=== PATIENT | female | born 1975 | race Caucasian/White ===

== ENCOUNTER → 2017-06-28 | Outpatient (REF) ==
[~2017-06-28] MED LIST: ACE3 PO; ADRENAL SUPPLEMENT; AMO500 PO; ASPI-1064 PO; BUP100 PO; CIPR-344 PO; CYC10 PO; FURO-45 PO; HTP; HYDR-3724 PO; IBU200 PO; IBU800 PO; IBUPROFEN; KET10 PO; LISD30PT PO; LOR5 PO; LOR5/325 PO; METF-1 PO; METH4TAB57 PO; OXYC-865 PO; PER PO; PRE20 PO; PRO20 PO; SCOPALAMINE PATCH; SUMA50TA34 PO; THYR60TA25 PO; [UNRECOGNIZED DRUG - OTHER]
--- NOTE | 2017-06-28 13:45 | RADIOLOGY IMAGING REPORT ---
FACILITY: [facility] - [place] PATIENT NAME: Stacy Barahona : 1975 MR: [id number] V: [id number] EXAM DATE: ORDERING PHYSICIAN: FERNANDO NGUYỄN TECHNOLOGIST: Location: [facility] - [place] Patient: Stacy Barahona : 1975 Visit/Account:[id number] Date of Sevice: 06/28/2017 Exam type: ANKLE 3 VIEW MIN RIGHT History: Fall 06/02/2017 Comparison: 06/01/2017. Findings: Reidentified is a subacute oblique displaced fracture of the distal right fibula with extension into the ankle joint. Ankle mortise aligns appropriately. Talar dome is intact. Tibia is intact. Soft tissue swelling is noted. IMPRESSION: 1. Subacute oblique displaced fracture of the distal right fibula with intra-articular extension ess entially unchanged. Report Dictated By: Felipe Hughes MD at 06/28/2017 1:39 PM Report E-Signed By: Felipe Hughes MD at 06/28/2017 1:41 PM WSN:[id number]
== END ==
LOC: RAD 12:31
PROVIDERS: ATTEND Nurse Practitioner
DX: S82.401A Unspecified fracture of shaft of right fibula, initial encounter for closed fracture (principal)

== ENCOUNTER → 2017-08-06 | Outpatient (REF) ==
--- NOTE | 2017-08-06 14:44 | RADIOLOGY IMAGING REPORT ---
FACILITY: [facility] - [place] PATIENT NAME: Stacy Barahona : 1975 MR: [id number] V: [id number] EXAM DATE: ORDERING PHYSICIAN: KIM BENNETT TECHNOLOG[place]: [place] [facility] [place] Stacy Bar[place] : 1975 Visit/Account:[id number] Date of Sevice: 08/06/2017 3 views right ankle INDICATION: Follow-up fracture COMPARISON: 06/28/2017 FINDINGS: There is a minimally displaced oblique fracture through the distal fibula, Hawk B. Developing perio steal reaction is present. The ankle mortise is symmetric. There is no significant ankle joint effusion. There is no focal soft tissue abnormality. No evidence of radiopaque foreign body. IMPRESSION: 1. Stable distal fibular fracture Report Dictated By: Luis Capellan at 08/06/2017 2:37 PM Report E-Signed By: Luis Capellan at 08/06/2017 2:40 PM WSN:[id number]
== END ==
LOC: RAD 10:12
PROVIDERS: ATTEND Orthopaedic Surgery Orthopaedic Surgery of the Spine
DX: M25.571 Pain in right ankle and joints of right foot (principal)